=== PATIENT | male | born 1975 | race American Indian/Alaskan Native ===

== ENCOUNTER 2021-01-02 00:52 | Emergency (ER) | payer SELFPAY ==
[2021-01-02] MEDS ORDERED: ACETAMINOPHEN 500 MG TAB PO ONE (04:31)
[2021-01-02] MEDS ORDERED: IBUPROFEN 800 MG TAB PO ONE (04:31)
--- NOTE | 2021-01-02 05:41 | XRay Report ---
CHEST PA AND LATERAL VIEWS INDICATION: right chest pain. COMPARISON: None. FINDINGS: Support devices: None. Heart: Follow-up prosthesis is noted. Overall heart size is normal. Lungs/Pleura: There is mild scarring versus atelectasis in the left mid to lower lung. Lungs otherwis e clear. No effusion or pneumothorax. There is elevation of the left hemidiaphragm. IMPRESSION: 1. No acute findings. Signer Name: Richard Castillo MD Signed: 01/02/2021 5:36 AM Workstation Name: [id number]
--- NOTE | 2021-01-02 06:01 | Emergency Department Report ---
ED General Adult HPI - General Chief complaint: Dyspnea/Respdistress Stated complaint: ENMANUEL Time Seen by Provider: 01/02/21 05:07 Source: patient Mode of arrival: Ambulatory Limitations: No Limitations - History of Present Illness Initial comments: 45-year-old male with past medical history of end-stage renal disease presents emergency department complaining of right-sided chest pain that is present when he takes deep breaths only. Reports no fever, chills, sweats no hemoptysis no hematemesis no nausea, no vomiting, no palpitations. -: Gradual Severity scale (0 -10): 4 - Related Data Previous Rx's Medication Instructions Recorded Last Taken Type Clindamycin [Clindamycin CAP] 300 mg PO Q8H #20 cap 02/22/16 Unknown Rx HYDROcodone/APAP 5-325 [[place] 1 each PO Q6HR PRN #20 tablet 02/22/16 Unknown Rx 5/325] amLODIPine [Norvasc] 10 mg PO DAILY #30 tab 02/22/16 Unknown Rx Allergies Allergy/AdvReac Type Severity Reaction Status Date / Time No Known Allergies Allergy Verified 02/22/16 00:00 ED Review of Systems ROS: Stated complaint: ENMANUEL Other details as noted in HPI Comment: All other systems reviewed and negative ED Past Medical Hx - Past Medical History Previous Medical History?: Yes Hx Hypertension: Yes - Surgical History Past Surgical History?: Yes Additional Surgical History: left knee. Arotic valve - Social History Smoking Status: Never Smoker Substance Use Type: None - Medications Home Medications: Home Medications Medication Instructions Recorded Confirmed Last Taken Type Clindamycin [Clindamycin CAP] 300 mg PO Q8H #20 cap 02/22/16 Unknown Rx HYDROcodone/APAP 5-325 [[place] 1 each PO Q6HR PRN #20 tablet 02/22/16 Unknown Rx 5/325] amLODIPine [Norvasc] 10 mg PO DAILY #30 tab 02/22/16 Unknown Rx ED Physical Exam - General Limitations: No Limitations General appearance: alert, in no apparent distress - Head Head exam: Present: atraumatic, normocephalic - Eye Eye exam: Present: normal appearance, PERRL Pupils: Present: normal accommodation - ENT ENT exam: Present: normal exam, mucous membranes moist, TM's normal bilaterally - Neck Neck exam: Present: normal inspection, full ROM - Respiratory Respiratory exam: Present: normal lung sounds bilaterally, chest wall tenderness (To the right rib region with palpation. No crepitus no lifts no heaves no thrills no step-offs). Absent: respiratory distress, wheezes, accessory muscle use - Cardiovascular Cardiovascular Exam: Present: regular rate, normal rhythm. Absent: systolic murmur, diastolic murmur, rubs, gallop - GI/Abdominal GI/Abdominal exam: Present: soft, normal bowel sounds. Absent: tenderness, guarding - Rectal Rectal exam: Present: deferred - Extremities Exam Extremities exam: Present: normal inspection, full ROM, normal capillary refill - Back Exam Back exam: Present: normal inspection. Absent: CVA tenderness (R), CVA tenderness (L) - Neurological Exam Neurological exam: Present: alert, oriented X3, CN II-XII intact - Psychiatric Psychiatric exam: Present: normal affect, normal mood. Absent: flat affect - Skin Skin exam: Present: warm, dry, intact, normal color. Absent: rash, diaphoretic, erythema, urticaria, pallor, abrasion, ecchymosis ED Course Vital Signs 01/02/21 02:11 Temperature 98.8 F Pulse Rate 73 Respiratory 18 Rate Blood Pressure 196/105 O2 Sat by Pulse 98 Oximetry ED Medical Decision Making - Radiology Data Radiology results: report reviewed [facility] [address] [place] [address] XRay Report Signed Patient: AZAR LANDIS MR#: [id number] : 1975 Acct:[id number] Age/Sex: 45 / M ADM Date: 01/02/21 Loc: ED Attending Dr: Ordering Physician: EVA MILES Date of Service: 01/02/21 Procedure(s): XR chest routine 2V Accession Number(s): [id number] cc: EVA MILES Fluoro Time In Minutes: CHEST PA AND LATERAL VIEWS INDICATION: right chest pain. COMPARISON: None. FINDINGS: Support devices: None. Heart: Follow-up prosthesis is noted. Overall heart size is normal. Lungs/Pleura: There is mild scarring versus atelectasis in the left mid to lower lung. Lungs otherwise clear. No effusion or pneumothorax. There is elevation of the left hemidiaphragm. IMPRESSION: 1. No acute findings. Signer Name: Richard Castillo MD Signed: 01/02/2021 5:36 AM Workstation Name: [id number] Transcribed By: TEMITOPE Dictated By: Richard Castillo MD Electronically Authenticated By: Richard Castillo MD Signed Date/Time: 01/02/21535 DD/ 4 TD/TT: - Medical Decision Making This patient presents with chest pain that is very unlikely angina or acute coronary syndrome. The emergency department evaluation has not identified any cause for suspicion that this chest pain has a cardiac etiology. Based on their history, EKG (which showed no evidence of ischemia or infarction) and imaging, in addition to the patient's physical exam, I see no evidence at this time for a malignant etiology for the patient's chest pain. There is no acute evidence for pulmonary embolus, acute myocardial infarction, pneumothorax, Boerhaeve syndrome, cardiac tamponade, thoracic artery dissection, or any other emergent cardiac, pulmonary or aortic pathology. Given the low pre-test probability for cardiac etiology of chest pain and the absence of any sign of ischemia or inf arction, discharge for outpatient follow-up and further evaluation is reasonable. I have explained to the patient that even though a cardiac problem is very unlikely, follow-up and further testing is required to reduce further the already small uncertainty that exists. Other life-threatening diagnoses have been considered. The patient understands the need to return immediately if their symptoms worsen or they develop any new symptoms, and not to engage in any significant exertional activity until follow-up is obtained. Critical care attestation.: If time is entered above; I have spent that time in minutes in the direct care of this critically ill patient, excluding procedure time. ED Disposition Clinical Impression: Chest pain Disposition: DC-01 TO HOME OR SELFCARE Is pt being admited?: No Does the pt Need Aspirin: No Condition: Stable Instructions: Nonspecific Chest Pain, Adult Referrals: PRIMARY CARE, [Primary Care Provider] - 3-5 Days JASON JORDAN MD [Staff Physician] - 3-5 Days JALEN ZELAYA MD [Staff Physician] - 3-5 Days
[2021-01-02 07:46] VITALS: BP 167/97
--- NOTE | 2021-01-03 17:07 | Electrocardiograph Report ---
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
== END 2021-01-02 07:42 | disposition home or self-care (01) ==
LOC: ED 00:52
DX: R07.89 Other chest pain (principal); I10 Essential (primary) hypertension; Z79.899 Other long term (current) drug therapy
CPT/HCPCS: 71046; 93005; 99283